=== PATIENT | male | born 1945 | race Caucasian/White ===

== ENCOUNTER → 2022-08-24 09:05 | Outpatient (CLI) | payer MEDICARE, OTHER, SELFPAY ==
--- NOTE | 2022-08-24 | DI.ECHO.S_ITS ---
[facility]---------+ [facility] +---------+ : : [address] : [address] [address] : : : : [id number] : : : : Phone: [phone]+ Echocardiogram Report + + :Name: LETTY BENITEZ Study Date: 08/24/2022 Height: 72 in : [facility] Weight[facility] 243 lb : : Gender: Male BSA: 2.3 m2 : :: 1945 Age: 77 yrs BP: 157/76 mmHg: :Reason For Study: Arrhythmia : :Ordering Physician: TERESE, : :GI Performed By: Theron Nolasco : :Referring: GI GUDINO : + + Interpretation Summary The left ventricle is normal in size. The ejection fraction is estimated to be 55-60%. No significant change in LVEF from the previous study. The right ventricle is normal in size and function. The aortic valve is moderately calcified. There is mildly reduced leaflet mobility. There is no hemodynamically significant valvular aortic stenosis. The IVC is of normal diameter and collapses greater than 50% with a sniff. This suggests a low right atrial pressure of 3 mm Hg. Procedure: A two-dimensional transthoracic echocardiogram with color flow and Doppler was performed. The study quality was technically adequate. Comparison is made with the echocardiogram of 12/10/2012. The patient was in sinus bradycardia with heart rates between 55-60 bpm during the exam. Left Ventricle: The left ventricle is normal in size. Left ventricular wall thickness is borderline increased. There is no thrombus. Left ventricular systolic function is normal. The ejection fraction is estimated to be 55-60%. There are no focal wall motion abnormalities. Diastolic parameters suggest a relaxation abnormality of the left ventricle, consistent with probable normal filling pressures. Right Ventricle: The right ventricle is normal in size and function. Atria: Both atria are normal in size. The interatrial septum grossly appears intact with no obvious evidence for an atrial septal defect. Mitral Valve: There is mild mitral annular calcification. The mitral valve leaflets appear mildly thickened, but open well. There is trace mitral regurgitation. Aortic Valve: There is moderate aortic valve sclerosis. The aortic valve is moderately calcified. There is mildly reduced leaflet mobility. There is no hemodynamically significant valvular aortic stenosis. The peak aortic velocity is 1.95 m/sec. The aortic valve mean gradient is 8.0 mmHg. No aortic regurgitation is present. Tricuspid Valve: The tricuspid valve is normal in structure and function. No tricuspid regurgitation. Pulmonary artery pressures cannot be estimated because of the lack of a measurable TR jet velocity. Pulmonic Valve: The pulmonic valve is not well visualized. There is no pulmonic valvular regurgitation. Great Vessels: The aortic root is normal size. The dimensions of the ascending aorta are normal. The aortic arch could not be visualized. The IVC is of normal diameter and collapses greater than 50% with a sniff. This suggests a low right atrial pressure of 3 mm Hg. Pericardium/ Pleura There is no pericardial effusion. There is no pleural effusion. MMode/2D Measurements & Calculations LVIDd: 4.7 cm LVOT diam: 2.3 cm LVIDs: 3.2 cm Ao root diam: 3.4 cm FS: 31.9 % asc Aorta Diam: 3.4 cm IVSd: 1.1 cm LVPWd: 1.1 cm LV snow. diameter/BSA (cm/m^2): 2.0 LV sys. diameter/BSA (cm/m^2): 1.4 LA dimension: 3.5 cm RA long axis: 4.5 cm LA A2 area: 19.7 cm2 LA A4 area: 16.3 cm2 LA length (vol): 5.6 cm LA vol: 48.8 ml LA vol index: 21.1 ml/m2 TAPSE_phl: 2.0 cm Doppler Measurements & Calculations Ao V2 max: 195.0 cm/sec LVOT Max Eric: 90.1 cm/sec Ao V2 mean: 136.0 cm/sec LV V1 max P.2 mmHg Ao max P.0 mmHg LV V1 VTI: 20.8 cm Ao mean P.0 mmHg AUTUMN(I,D): 2.0 cm2 Ao V2 VTI: 42.7 cm AUTUMN(V,D): 1.9 cm2 sev ratio: 0.49 AUTUMN indexed to BSA (cm^2/m^2): 0.87 MV E max eric: 64.3 cm/sec SV(LVOT): 86.4 ml MV A max eric: 87.0 cm/sec MV E/A: 0.74 Med Peak E' Eirc: 4.5 cm/sec E/E' med: 14.4 Lat Peak E' Eric: 7.2 cm/sec E/E' lat: 9.0 E/e' average: 11.7 MV dec time: 0.31 sec AV VR_phl: 0.46 MV P1/2t-pr_phl: 90.0 msec AUTUMN(VTI)/BSA_phl: 0.87 Reading Physician:05:47 PM
[2022-08-24 10:20] LABS: COVID19 -Nasal RAPID Negative (Negative)
--- NOTE | 2022-08-24 19:29 | DI.NM.S_ITS ---
DATE OF SERVICE: 08/24/2022 PROCEDURE PERFORMED: Pharmacologic vasodilator stress and rest myocardial perfusion imaging with gating to assess ejection fraction and regional wall motion. ORDERING PROVIDER: Dr. Cisco Leger. INDICATIONS: The patient is a 77-year-old male with a history of inferior infarct and RCA stenting who now presents with frequent PVCs. CARDIAC STRESS: Per protocol, 0.4 mg of regadenoson was infused with a normal hemodynamic response. He had minimal dyspnea but no chest discomfort or other anginal symptoms. His resting ECG shows sinus rhythm with mild nonspecific ST- segment abnormalities that remain unchanged with pharmacologic stress. There were rare isolated PVCs but no complex arrhythmias. Per protocol, 24.4 millicuries of technetium-99m Myoview was injected and he was imaged 15 minutes later using a gated SPECT acquisition protocol. Earlier in the day while at rest, he was injected with 11.4 millicuries of technetium-99m Myoview and was imaged 20 minutes later, again using a quantitated gated SPECT protocol. FINDINGS: 1. Raw data: There is fair myocardial tracer uptake with some evidence for diaphragmatic attenuation. Unfortunately, the patient was unable to lie prone. The lung/heart ratio is normal at 0.35 with a normal TID ratio of 1.10. 2. Quantitated gated SPECT: Post-stress ejection fraction is estimated at 72% with hypokinesis of the base of the inferior wall extending into the mid portion but no other focal wall motion abnormalities. The resting ejection fraction is calculated at 59%, although visually appears very similar to that of the post-stress ejection fraction with an identical contraction pattern. Resting end-diastolic volumes are borderline increased at 128 mL. 3. Myocardial perfusion imaging: Post-stress supine images shows absent perfusion in the base of the inferior wall, extending into the mid inferior wall, but sparing the distal inferior wall. Unfortunately, there are no prone images to assess for diaphragmatic attenuation. The resting images show an identical perfusion pattern without any areas of improvement in the inferior wall. IMPRESSION: 1. Probable abnormal myocardial perfusion study. 2. 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 There is no evidence for any significant myocardial ischemia. 3. Preserved left ventricular systolic function but with probable hypokinesis in the proximal to mid inferior wall consistent with previous infarction. Left ventricular volumes are at the upper limits of normal. 4. No angina or ECG evidence of ischemia with pharmacologic vasodilator stress. Rare isolated PVCs were seen but no complex ventricular ectopy. Bill Lucero - LYN/michelle/bridger doc#: [id number]/job#: [id number] dd: 08/24/2022 17:27:00 dt: 08/24/2022 18:44:00 DICTATING /COPIES TO: Vincent Bassett MD COPIES MNE: LUZ ELENAO;
== END ==
PROVIDERS: Family Provider Internal Medicine Cardiovascular Disease; PCP Internal Medicine; Referring Provider Internal Medicine Cardiovascular Disease; Visit Provider Internal Medicine Cardiovascular Disease
DX: I49.3 Ventricular premature depolarization (principal); I25.2 Old myocardial infarction; Z20.822 Contact with and (suspected) exposure to COVID-19; I08.0 Rheumatic disorders of both mitral and aortic valves; Z95.5 Presence of coronary angioplasty implant and graft
CPT/HCPCS: 78452; 87635; 93017; 93306; A9502; J2785

== ENCOUNTER → 2024-11-03 13:32 | Outpatient (CLI) | payer MEDICARE, OTHER, SELFPAY ==
--- NOTE | 2024-11-03 13:34 | DI.ECHO.S_ITS ---
[facility] +---------+ [facility] : : [address] : [place] : : [id number] : : Phone: [phone] Echocardiogram Report + + :Name: LETTY BENITEZ Study Date: 11/03/2024 Height: 72 in : :[facility] ReadingLocation: Weight: 245 lb : : Gender: Male BSA: 2.3 m2 : :: 1945 Age: 79 yrs BP: 162/76 mmHg: :Reason For Study: MURMUR : :Ordering Physician: TERESE, : :GI Performed By: Jaime Mota : :Referring: GI GUDINO : + + Interpretation Summary The left ventricle is normal in size. The left ventricular ejection fraction is normal. The ejection fraction is estimated to be 60-65%. No significant change in LVEF from the previous study. The right ventricle is grossly normal size. The right ventricular systolic function is normal. There is a pacemaker lead in the right ventricle. The aortic valve is not well visualized. The aortic valve is moderately calcified. There is mildly reduced leaflet mobility. There is no hemodynamically significant valvular aortic stenosis. There is aortic root sclerosis/calcification. Procedure: A two-dimensional transthoracic echocardiogram with color flow and Doppler was performed. The study quality was technically good. Comparison is made with the echocardiogram of 07/20/2023. The patient was in normal sinus rhythm during the exam. Left Ventricle: The left ventricle is normal in size. Left ventricular wall thickness is mildly increased. There is no thrombus. The ejection fraction is estimated to be 60-65%. The left ventricular ejection fraction is normal. There has been no significant change since the previous exam. There are no focal wall motion abnormalities. Diastolic parameters suggest a relaxation abnormality of the left ventricle, consistent with probable normal filling pressures. Right Ventricle: The right ventricle is grossly normal size. There is a pacemaker lead in the right ventricle. The right ventricular systolic function is normal. Atria: The left atrial size is normal. Right atrial size is normal. There is a catheter/pacemaker lead seen in the right atrium. The interatrial septum grossly appears intact with no obvious evidence for an atrial septal defect. Mitral Valve: There is mild mitral annular calcification. The mitral valve leaflets are mildly calcified. There is trace mitral regurgitation. Aortic Valve: The aortic valve is moderately calcified. The aortic valve is not well visualized. There is mildly reduced leaflet mobility. There is no hemodynamically significant valvular aortic stenosis. No aortic regurgitation is present. Tricuspid Valve: The tricuspid valve is not well visualized, but is grossly normal. There is trace tricuspid regurgitation. Pulmonary artery pressures cannot be estimated because of the lack of a measurable TR jet velocity. Pulmonic Valve: The pulmonic valve is not well visualized. There is no pulmonic valvular regurgitation. Great Vessels: The aortic root is normal size. There is aortic root sclerosis/calcification. The ascending aorta is at the upper limits of normal in size. The pulmonary artery is not well visualized, but is probably normal size. The inferior vena cava was not visualized. Pericardium/ Pleura There is no pericardial effusion. MMode/2D Measurements & Calculations LVIDd: 4.8 cm LVOT diam: 2.2 cm LVIDs: 3.0 cm Ao root diam: 3.8 cm FS: 37.7 % asc Aorta Diam: 4.0 cm EPSS: 0.75 cm IVSd: 1.2 cm LVPWd: 1.2 cm LV snow. diameter/BSA (cm/m^2): 2.1 LV sys. diameter/BSA (cm/m^2): 1.3 LA A2 area: 23.7 cm2 RA long axis: 4.7 cm LA A4 area: 21.5 cm2 RA area: 14.6 cm2 LA length (vol): 5.6 cm RA vol: 38.2 ml LA vol: 76.8 ml RA : 16.5 ml/m2 LA vol index: 33.1 ml/m2 TAPSE: 2.8 cm Doppler Measurements & Calculations Ao V2 max: 186.2 cm/sec LVOT Max Eric: 88.5 cm/sec Ao V2 mean: 135.9 cm/sec LV V1 max P.1 mmHg Ao max P.9 mmHg LV V1 VTI: 20.0 cm Ao mean P.1 mmHg AUTUMN(I,D): 1.7 cm2 Ao V2 VTI: 47.1 cm AUTUMN(V,D): 1.9 cm2 sev ratio: 0.43 AUTUMN indexed to BSA (cm^2/m^2): 0.72 MV E max eric: 48.7 cm/sec PA V2 max: 69.0 cm/sec MV A max eric: 64.9 cm/sec PA V2 mean: 47.8 cm/sec MV E/A: 0.75 PA mean P.0 mmHg Med Peak E' Eric: 5.2 cm/sec PA pr(Accel): 55.0 mmHg E/E' med: 9.4 Lat Peak E' Eric: 5.6 cm/sec E/E' lat: 8.6 E/e' average: 9.0 MV dec time: 0.32 sec [facility]): 79.1 ml Reading Physician:04:32 PM
== END ==
PROVIDERS: Family Provider Internal Medicine Cardiovascular Disease; Referring Provider Internal Medicine Cardiovascular Disease; Visit Provider Internal Medicine Cardiovascular Disease
DX: I34.81 Nonrheumatic mitral (valve) annulus calcification (principal); R01.1 Cardiac murmur, unspecified; Z95.0 Presence of cardiac pacemaker
CPT/HCPCS: 93306